=== PATIENT | female | born 1995 | race Caucasian/White ===

== ENCOUNTER 2017-03-27 06:22 | Observation (INO) | payer OTHER ==
[2017-03-27] VITALS (12 sets, daily range): BP systolic 93–124; BP diastolic 61–85; PULSE 60–126; RESP 11–20; O2SAT 96–100
[~2017-03-27] VITALS: Ht 165.1 cm; Wt 75.0 kg
--- NOTE | 2017-03-27 06:52 | ED.REPORT ---
HPI-Abd Pain F Under 40 Date of Service Mar 27, 2017 ED Provider: Remberto Rivera DO Patient is a 22 year old female who presents to the ED complaining of sudden onset, constant, RLQ abdominal pain onset 1700 last night. Associated symptom include nausea and chills. She denies fever, vomiting, diarrhea, abnormal vaginal discharge, or any other symptoms. She last ate around 1830 last night. Pt is currently on her period. Nursing Notes Stated Complaint: BOTTOM RIGHT ABDOMINAL PAIN Chief Complaint: Female Abdominal Pain Nursing Notes Reviewed: Yes Allergies: Coded Allergies: No Known Allergies (Unverified , 03/27/17) General Time Seen by MD: 06:49 Chief Complaint Abdominal pain Hx Obtained From: Patient Arrived By: Walk-in Sudden in Onset?: Yes Onset Occurred: 13 - 16 hours ago Symptom Duration: Since onset Progression since Onset: Constant Location: : RLQ Quality: Painful Severity: Current: Moderate Severity: Maximum: Moderate Past Medical History Past Medical History Heathy Past Surgical History Denies Smoking History Never Smoker Social History Alcohol Use: "Social" Drug Use: THC Other Social History: Good social support Ambulatory Status Independent Review of Systems Constitutional: Reports: Chills, Denies: Fever GI: Reports: Abdominal pain, Nausea, Denies: Diarrhea, Vomiting Female: Denies: Vaginal discharge Complete sys rev & neg: except as marked. Physical Exam Initial Vital Signs Vital Signs (First) Date Time Temp Pulse Resp B/P Pulse Ox O2 Delivery O2 Flow Rate FiO2 03/27/17 06:32 37.6 70 20 106/68 96 Room Air Initial VS: Reviewed, Vital signs abnormal Head / Eyes: Atraumatic, Normocephalic Neck: Full range of motion Skin: Warm, Dry Neurologic: Alert, Oriented, Nonfocal Psychiatric: Mood/affect normal, Behavior normal, Normal thought content General/Constitutional: Awake, Alert, No acute distress Respiratory / Chest: Atraumatic, Breath sounds NL, Breath sounds = bilat, No respiratory distress Cardiovascular: Heart rate NL, Regular rhythm, Heart sounds NL Abdomen: Atraumatic, Soft Tenderness/Guarding/Rebound: Positive: McBurney's point tender, Tender RLQ... Back: Atraumatic Interpretation & Diagnostics Lab Results Interpretation Result Diagram: 03/27/17 0700 03/27/17 0700 Test 9/12/17 07:00 White Blood Count 17.1th/mm3 (3.8-10.1) Red Blood Count 4.40mil/mm3 (3.90-5.20) Hemoglobin 12.8g/dL (12.0-15.6) Hematocrit 37.2% (35.0-46.0) Mean Corpuscular Volume 84.5fL (81-100) Mean Corpuscular Hemoglobin 29.1pg (27.0-35.0) Mean Corpuscular Hemoglobin Concent 34.4% (32.0-37.0) Red Cell Distribution Width 12.1% (12.3-15.4) Platelet Count 208bil/L (150-400) Neutrophils (%) (Auto) 86.3% (40-74) Lymphocytes (%) (Auto) 3.7% (14-46) Monocytes (%) (Auto) 9.6% (4-12) Eosinophils (%) (Auto) 0.1% (0-5) Basophils (%) (Auto) 0.1% (0-3) Sodium Level 137mEq/L (134-144) Potassium Level 3.8mEq/L (3.5-5.2) Chloride Level 103mEq/L (97-108) Carbon Dioxide Level 20mmol/L (18-29) Blood Urea Nitrogen 11mg/dL (6-20) Creatinine 0.54mg/dL (0.57-1.00) Estimat Glomerular Filtration Rate 200mL/min (>59) Glucose Level 111mg/dL (60-99) Calcium Level 8.9mg/dL (8.5-10.1) Magnesium Level 1.8mg/dL (1.6-2.6) Total Bilirubin 1.0mg/dL (0.0-1.2) Aspartate Amino Transf (AST/SGOT) 15U/L (0-50) Alanine Aminotransferase (ALT/SGPT) 6U/L (0-32) Alkaline Phosphatase 56U/L (25-150) Total Protein 7.1g/dL (6.4-8.4) Albumin 4.2g/dL (3.4-5.0) Lipase 19U/L (13-60) Re-Eval/Medical Decision Med Decision/Clinical Course Med Decision/Clinical Course: Exam highly suggestive of appendicitis with a positive ultrasound and leukocytosis. Surgeon is consulted who agrees to admit the patient. Re-Evaluation/Progress : Time of Eval: 08:52 )( Re-Eval Abdomen: Soft Re-Evaluation/Progress Note: Rechecked pt. Discussed US results and plan for admission. Patient understands and agrees with plan. All questions addressed at this time. Consultation : Referral / Consult Name: Piyush Cline MD Consulted With: Surgeon Call Returned at: 09:10 Hand Surgeon: Will see patient, Agrees with eval, Agrees with plan, Accepts admit Note: Discussed pt's case. Will see pt. Accepts admit. Counseled Regarding: Diagnosis, Lab results, Need for admission Discharge & Departure Primary Impression: Appendicitis Appendicitis type: acute appendicitis Acute appendicitis type: unspecified acute appendicitis type Qualified Code: K35.80 - Unspecified acute appendicitis Referrals: NOPCP (PCP) Jennifer Attestation Portions of this note were transcribed by Katerine Michael. I, Dr. Rivera personally performed the history, physical exam and medical decision-making; I reviewed and confirmed the accuracy of the information in the transcribed note. Signed by: Jennifer Holbrook, 03/27/17 Remberto Rivera DO Mar 27, 2017 06:52 KATERINE MICHAEL Mar 27, 2017 07:02
[2017-03-27 07:10] LABS: BASOPHILS % (AUTO) 0.1 % (0-3); EOSINOPHILS % (AUTO) 0.1 % (0-5); MONOCYTES % (AUTO) 9.6 % (4-12); Mean Corpuscular Hemoglobin 29.1 pg (27.0-35.0); Mean Corpuscular Volume 84.5 fL (81-100); NEUTROPHILS % (AUTO) 86.3 % (40-74); Platelet Count 208 bil/L (150-400)
[2017-03-27] MEDS ORDERED: Ketorolac 15 mg/mL Inj IVPUSH ONE (07:25)
[2017-03-27] MEDS ORDERED: Ondansetron 2 mg/mL 2 mL Inj IVPUSH PRN ×3 (07:25→12:10)
[2017-03-27 07:31] LABS: Magnesium 1.8 mg/dL (1.6-2.6)
[2017-03-27] MEDS ORDERED: Ampicillin-Sulbactam Inj 3,000 MG in 0.9% Sodium Chloride 100 ML IV ONE (10:30)
--- NOTE | 2017-03-27 10:40 | NUR ---
arrived to room 1019 from ER pt was only in room a few minutes when OR crew came and brought her to surgery, Boyfriend here. Consent already signed. Pt feeling anxious
[2017-03-27] MEDS ORDERED: Lactated Ringer's 1,000 ML IV SCH (11:08)
[2017-03-27] MEDS ORDERED: Lactated Ringer's 500 ML IV PRN (11:08)
--- NOTE | 2017-03-27 11:08 | PCM.HPANE ---
Patient Data Date of Service: Mar 27, 2017 Surgeon Admitting Provider:Piyush Cline MD Attending Provider:Piyush Cline MD Primary Care Physician:Nopcp Other Provider: Reason for Visit Acute Appy Ht/WT & BMI Height (Feet): 5 Height (Inches): 5 Weight (Kilograms): 75 Body Mass Index Allergies Coded Allergies: No Known Allergies (Unverified , 03/27/17) Past Anesthesia History Anesthesia History: Denies:: Fam Anesthesia Reaction, Fam Malignant Hypertherm Diabetes History Hx Diabetes?: No Medications Hypertension Medication: No Home Meds Incl Beta Suzie: No History History of ENT Problems?: No HEENT History: Denies:: Abnormal Airway Denture Type: None Teeth Condition: Within Normal Limits Hx of Heart Problems?: No Cardiovascular History: Denies:: Congestive Heart Failure Hypertension Hx of Respiratory Problem?: No Respiratory History: Denies:: Tuberculosis Hx Neurologic Problems?: No Hx of GI Problems?: No Hx of Problems?: No Female Hx: Denies:: Currently Hx Musculoskeletal Problems?: No Hx of Psycho/Social Problems?: No Hx Surgeries?: No Hx Any Other Health Problems?: No Hx Diabetes: No Hx Alcohol Use: NoHx Substance Use: No Smoking Status: Never Smoker Have You Smoked inLast 12 mo: No Stop/Bang OSMANI Risk Assessment: Low Risk, <3 Yes Risk Assessment Category Category 1A: Patient has history of documented sleep apnea, and HAS NOT received any narcotic, sedative or anesthesia administration during this stay. Category 1B: Patient has history of documented sleep apnea, and HAS received any narcotic , sedative or anesthesia administration during this stay Category 2: Patient has SUSPECTED Obstructive Sleep Apnea, and HAS received any narcotic , sedative or anesthesia administration during this stay. Category 3: Patient has SUSPECTED Obstructive Sleep Apnea and HAS NOT received narcotic, sedative or anesthesia administration during this stay. Category 4: Outpatient in Procedural Areas with known sleep apnea or who screen positive for High Risk via the STOP/BANG questionnaire. Exam Exam Vital Signs Vital Signs Date Time Temp Pulse Resp B/P Pulse Ox O2 Delivery O2 Flow Rate FiO2 03/27/17 10:58 36.6 75 16 100/65 98 Room Air 03/27/17 10:13 78 18 104/61 98 Room Air 03/27/17 06:32 37.6 70 20 106/68 96 Room Air General Appearance: Alert, Oriented X3, Cooperative, No Acute Distress HEENT/AIRWAY: MP 2 Lungs: Clear to Auscultation, Normal Air Movement Heart: Exam Unremarkable, Regular Rate/Rhythm, No Murmurs/Rubs/Gallops Meds/Labs/Diagnostics Admission Meds Current Medications Ketorolac Tromethamine (Toradol Inj) 15 mg ONCE ONCE IVPUSH Last administered on 03/27/17t 07:56; Start 03/27/17 at 07:25; Stop 03/27/17 at 07:26; Status DC Labs Test 03/27/17 07:00 White Blood Count 17.1th/mm3 (3.8-10.1) Red Blood Count 4.40mil/mm3 (3.90-5.20) Hemoglobin 12.8g/dL (12.0-15.6) Hematocrit 37.2% (35.0-46.0) Mean Corpuscular Volume 84.5fL (81-100) Mean Corpuscular Hemoglobin 29.1pg (27.0-35.0) Mean Corpuscular Hemoglobin Concent 34.4% (32.0-37.0) Red Cell Distribution Width 12.1% (12.3-15.4) Platelet Count 208bil/L (150-400) Neutrophils (%) (Auto) 86.3% (40-74) Lymphocytes (%) (Auto) 3.7% (14-46) Monocytes (%) (Auto) 9.6% (4-12) Eosinophils (%) (Auto) 0.1% (0-5) Basophils (%) (Auto) 0.1% (0-3) Sodium Level 137mEq/L (134-144) Potassium Level 3.8mEq/L (3.5-5.2) Chloride Level 103mEq/L (97-108) Carbon Dioxide Level 20mmol/L (18-29) Blood Urea Nitrogen 11mg/dL (6-20) Creatinine 0.54mg/dL (0.57-1.00) Estimat Glomerular Filtration Rate 200mL/min (>59) Glucose Level 111mg/dL (60-99) Calcium Level 8.9mg/dL (8.5-10.1) Magnesium Level 1.8mg/dL (1.6-2.6) Total Bilirubin 1.0mg/dL (0.0-1.2) Aspartate Amino Transf (AST/SGOT) 15U/L (0-50) Alanine Aminotransferase (ALT/SGPT) 6U/L (0-32) Alkaline Phosphatase 56U/L (25-150) Total Protein 7.1g/dL (6.4-8.4) Albumin 4.2g/dL (3.4-5.0) Lipase 19U/L (13-60) Plan Impression Patient chart reviewed, patient interviewed and anesthestic plan with risks, benefits, and alternatives discussed, and informed consent obtained. NPO per Anesth. Guidelines: Yes ASA Physical Status: ASA1 Normal Healthy Anesthetic Plan: GA Bene/Risks/Altern/Consents: Yes HP Complete Prior to Induction: Yes Tato Grajeda MD Mar 27, 2017 11:08
[2017-03-27] MEDS ORDERED: HYDROmorphone 1 mg/mL Inj IVPUSH PRN ×2 (11:10→12:15)
[2017-03-27] MEDS ORDERED: Dexamethasone 4 mg/mL Inj IVPUSH PRN (11:10)
[2017-03-27] MEDS ORDERED: Phenylephrine 10,000 mCg/mL Inj IVPUSH PRN (11:10)
[2017-03-27] MEDS ORDERED: MetoCLOpramide 5 mg/mL 2 mL Inj IVPUSH PRN ×2 (11:10→12:10)
[2017-03-27] MEDS ORDERED: EPHEDrine Sulfate 50 mg/mL Inj IVPUSH PRN (11:10)
[2017-03-27] MEDS ORDERED: fentaNYL-PF 50 mCg/mL 2 mL Inj IVPUSH PRN (11:10)
[2017-03-27] MEDS ORDERED: Lactated Ringer's 1,000 ML IV ONE ×2 (11:27)
[2017-03-27] MEDS ORDERED: Bupivacaine-MPF 0.5% 30 mL Inj INFILTRATE ONE (11:40)
--- NOTE | 2017-03-27 11:57 | DRSVH ---
PROCEDURE: US PELVIC SONOGRAM + TRANSVAGINAL SONOGRAM INDICATIONS: RLQ pain TECHNIQUE: Real-time scanning was performed of the pelvic organs, with image documentation. Additional endovagi nal scanning was necessary due to incomplete visualization of the adnexal and endometrial structures by transabdominal scanning. COMPARISON: [facility], US, US APPENDIX, 03/27/2017, 7:35. FINDINGS: (orthogonal measurements) Uterus size: 6.9 x 2.2 x 4.3 cm Endometrium thickness: 2.9 mm Right ovary size: 1.51 cm, 3.57 cm Left ovary size: 3.41 cm, 1.78 cm, 1.80 cm Transabdominal scanning: Limited scanning through the kidneys shows no hydronephrosis. No pathologi c free abdominal or pelvic fluid. Endovaginal scanning: Uterus: Uterus is normal in size and appearance. Endometrium is within normal physiologic limits. Ovaries: Within normal physiologic limits. Abnormal appearance of the appendix redemonstrated which is thickened and noncompressible. IMPRESSION: 1. Normal appearance of the gynecologic organs. 2. Abnormal appearance of the appendix as described in appendix dictation consistent with acute appen dicitis. Dr. Cline personally given results at 1130 hrs. 03/27/2017. Dictated by: Sharan Pineda RR Interpreted: Lissa Solomon MD on 03/27/2017 at 11:25 Transcribed by: TESS on 03/27/2017 at 11:56 Approved by: Lissa Solomon M.D. on 03/27/2017 at 17:19
[2017-03-27] MEDS ORDERED: Ketorolac 15 mg/mL Inj IVPUSH PRN (12:10)
[2017-03-27] MEDS ORDERED: Sodium Chloride LOK Flush 10 mL Syringe IVFLUSH PRN (12:10)
--- NOTE | 2017-03-27 12:17 | PCM.ANEP1 ---
Post Anesthesia PACU Phase 1 Assessment Date of Service: Mar 27, 2017 Vital Signs 36.1 121/82 127 16 100% RA Anesthetic Administered: GA Level of Alertness: Awake, talking CAVANAUGH's with Equal Strength: Yes Pain: No Nausea or Vomiting: No CV Function & Hydration Stable: Yes Airway Device: Oxygen Delivery: Room Air Lungs: Clear to Auscultation, Normal Air Movement PACU Phase 2 Assessment Complications: No Follow up Care: N/A Patient Instructions Provided: N/A Tato Grajeda MD Mar 27, 2017 12:17
--- NOTE | 2017-03-27 13:00 | NUR ---
arrived back to room 1019 from OR VSS, alert, oriented, comfortable, abd soft, incisions intact, denies nausea
--- NOTE | 2017-03-27 14:00 | HP ---
[address] [address] HISTORY AND PHYSICAL PATIENT: MARTIR ALVAREZ : 1995 MR#: [id number] ADMIT: 03/27/2017 JOB ID: [id number] CHIEF COMPLAINT: A 22-year-old woman with probable appendicitis. HISTORY OF PRESENT ILLNESS: The patient noted onset of abdominal pain with nausea and chills beginning last night. She is currently in the middle of her menstrual periods. Denies other vaginal discharge. PAST MEDICAL HISTORY: Unremarkable. MEDICATIONS: None. ALLERGIES: None. SOCIAL HISTORY: Negative daily alcohol, negative tobacco. Seen with her boyfriend, works at [employer] FAMILY HISTORY: Noncontributory. REVIEW OF SYSTEMS: Negative. PHYSICAL EXAMINATION: BMI is 27.5. Vital signs recorded in the chart. She is afebrile. Pulse and blood pressure are normal. HEENT: Sclerae are clear. Neck is supple. Lungs are clear. Heart sounds are regular. Breasts are not examined. She has my mild to moderate right lower quadrant tenderness to palpation. The rectal and vaginal examinations are not performed. LABORATORIES: Show white count of 17,000, hematocrit 37.2. Electrolytes are normal. Glucose is 111. LFTs and lipase are normal. IMAGING: She had an abdominal and pelvic ultrasound which is consistent with appendicitis but shows no adnexal pathology. I have reviewed the films myself and reviewed them with Sharan Pineda RPA, in Radiology. IMPRESSION AND PLAN: Probable appendicitis. I have recommended laparoscopic appendectomy. We have discussed options including antibiotic treatment, though I would not recommend this. She agrees to proceed.
--- NOTE | 2017-03-27 15:38 | OP ---
[address] [address] OPERATIVE REPORT PATIENT: MARTIR ALVAREZ : 1995 MR#: [id number] ADMIT: 03/27/2017 JOB ID: [id number] DATE OF SURGERY: 03/27/2017 SURGEON: Piyush Cline MD and Seven Pinedo MD, R-III. PATTERNMAKER BENCH: Freddy Urias PA-C (senior court office assistant was required for camera operation). PREOPERATIVE DIAGNOSIS(ES): Appendicitis. POSTOPERATIVE DIAGNOSIS(ES): Appendicitis. PROCEDURE: Laparoscopic appendectomy. INDICATIONS: A 22-year-old woman with signs and symptoms consistent with appendicitis. FINDINGS: Acute nonperforated appendicitis. senior court office assistant was required for camera operation. PROCEDURE IN DETAIL: The patient brought to the operating room. SCOAP protocol was followed. She received perioperative Unasyn. Abdomen was prepped and draped in sterile fashion. After surgical time-out was performed, we made incision by the umbilicus and placed a Veress needle. After establishing a CO2 pneumoperitoneum, 5 mm port was placed by the umbilicus. The abdomen was surveyed. The patient was tilted head-down and to the left and this had the appearance of appendicitis. We placed two additional ports in our standard fashion, peeled the greater omentum off of the appendix and then elevated the appendix, holding onto the mesoappendix and used a single firing of the 45 stapler white load to amputate the mesoappendix and the appendix at its base. Specimen was removed in a bag. We inspected the base and the staple line was intact. Hemostasis was good. We irrigated appropriately, let our CO2 out, closed the wounds with absorbable suture including 0-Vicryl at the 12 mm port. The patient tolerated the procedure well and may possibly go home later today. YASEMIN
--- NOTE | 2017-03-27 17:21 | DRSVH ---
PROCEDURE: US APPENDIX INDICATIONS: RLQ PAIN TECHNIQUE: Real-time focused scanning was performed of the abdomen with attention to the appendix, with image do cumentation. COMPARISON: None. FINDINGS: Appendix visualization: Well-visualized appendix. Appendix measurements: 1.0 cm. Associated findings: Echogenic fat: Present. Appendiceal compressibility: Absent. Appendicoliths: Absent. Nearby free fluid: Absent. Lymphadenopathy: Absent. Tenderness on exam: Present. IMPRESSION: Abnormal appearance of the appendix which is thickened and noncompressible consistent wit h nonruptured early acute appendicitis. Dr. Cline personally given results at 1130 hrs. 03/27/2017. Dictated by: Sharan RAO Interpreted: Lissa Solomon MD on 03/27/2017 at 11:32 Approved by: Lissa Solomon M.D. on 03/27/2017 at 17:19
--- NOTE | 2017-03-27 17:49 | PCM.DISURG ---
Surgical Discharge Instruction Date of Service Mar 27, 2017 Dates of Hospitalization Date of Hospital Admission Mar 27, 2017 at 09:14 Providers Admitting Physician: Piyush Cline MD Primary Care Physician: [place] Attending Physician: Piyush Cline MD Discharge Diagnosis Discharge Diagnosis appendicitis Post Operative diagnosis Same Diet Discharge Diet: No restrictions Activity Discharge Activity-General: Try not to overdue, Be up and about, Balance rest and activity, Activity as pain allows, Activity as energy allows, No driving while taking narcotic Dressing and Incisional Care Dressing Care: Allow Steri Stripes to fall off, Remove outer dressing after 24 hrs Hygiene: May shower after (24 hours), DO NOT soak incision under water, NO bathtub, hot tub or whirlpool Follow Up Plan Mid-level Provider (F9): Dakota Tenorio PA-C Follow-up appointment: Weeks (2-3) Call your provider for: Fever, Chills, Increasing abdominal pain, Nausea, Vomiting, Wound redness, Increasing wound pain, Warmth to touch, Discharge @ incision, pus discharge Mateo Mario PA-C Mar 27, 2017 17:49
[2017-03-27] MEDS ORDERED: OXYC1TAB24 PO (17:50)
--- NOTE | 2017-03-27 18:07 | PCM.DC.SUR ---
Discharge Summary Date of Service: Mar 27, 2017 Date of Hospital Admission: Mar 27, 2017 at 09:14 Date of Operation(s): Mar 27, 2017 Date of Discharge: Mar 27, 2017 Diagnosis at Time of Discharge Appendicitis Problems: Operation Laparoscopic appendectomy Brief History and Physical: HISTORY: The patient noted onset of abdominal pain with nausea and chills beginning last night. She is currently in the middle of her menstrual periods. Denies other vaginal discharge. PHYSICAL EXAMINATION: BMI is 27.5. Vital signs recorded in the chart. She is afebrile. Pulse and blood pressure are normal. HEENT: Sclerae are clear. Neck is supple. Lungs are clear. Heart sounds are regular. Breasts are not examined. She has my mild to moderate right lower quadrant tenderness to palpation. The rectal and vaginal examinations are not performed. Consultants: None Hospital Course: The patient was admitted from the ED and transferred to the operating room for a laparoscopic appendectomy. She tolerated the procedure well and was transferred to her hospital room where she remained for the balance of her hospital stay. Please refer to the operative report for details of the procedure. Later on the same day of the operation, she was found to be tolerating oral feedings and was ambulating without significant discomfort. She was then discharged to her home in good condition. Pathology: Pending Disposition: Home in good condition. oxyCODONE-Acetaminophen 5-325 mg (oxyCODONE-Acetaminophen 5-325 mg) 1 Each Tablet 1 TAB PO Q6H PRN PRN For Pain Mateo Mario PA-C Mar 27, 2017 18:07
--- NOTE | 2017-03-27 18:13 | PCM.PNSURG ---
Subjective Date of Service: Mar 27, 2017 Date of Service: Mar 27, 2017 Visit Information: Reason for Visit Acute Appy Surgery/Surgery Date LAP APPY 03/27/17 Post-Op Day # Date of Admission: Mar 27, 2017 at 09:14 Hospital Day #1 Subjective: Patient reports good pain control s/p lap appy. Tolerating oral feedings. Ambulating well. Wants to go home. Postop General: No Complaints Gastrointestinal: Tolerating Oral Feedings Pain Management: PO Postop Activity: Ambulating Independently Objective Objective Pleasant female in no apparent distress. Vital Sign- Last 8 Hours Date Time Temp Pulse Resp B/P Pulse Ox O2 Delivery O2 Flow Rate FiO2 03/27/17 16:23 36.7 83 18 93/61 99 Room Air 03/27/17 13:02 36.5 67 18 101/65 100 Room Air 03/27/17 12:43 60 16 115/70 100 Room Air 03/27/17 12:40 36.6 77 13 118/77 100 Room Air 03/27/17 12:34 76 11 118/73 100 Room Air 03/27/17 12:29 116 11 123/85 100 Room Air 03/27/17 12:27 121 13 119/74 100 Room Air 03/27/17 12:20 126 18 124/84 100 Room Air 03/27/17 12:17 Room Air 03/27/17 12:15 36.1 125 16 121/82 100 Room Air 03/27/17 10:58 36.6 75 16 100/65 98 Room Air 03/27/17 10:13 78 18 104/61 98 Room Air General: Alert, Cooperative, No Acute Distress Lungs: Clear to Auscultation Heart: Regular Rate/Rhythm Abdomen: Soft, Appropriately tender, Normoactive bowel tones SURGICAL WOUND : Wound General Appearence: Steri Strips, Well Approximated, No Erythema Dressing & Drainage Status: Intact, Serosanguineous Drainage Result Diagram: 03/27/17 0700 03/27/17 0700 Diagnostics: PROCEDURE: US APPENDIX INDICATIONS: RLQ PAIN FINDINGS: Appendix visualization: Well-visualized appendix. Appendix measurements: 1.0 cm. IMPRESSION: Abnormal appearance of the appendix which is thickened and noncompressible consistent with nonruptured early acute appendicitis. Assessment & Plan Impression Satisfactory post op course s/p lap appy, pod 0 Problems: Plan Discharge to home f/u 2-3 weeks with gen surgery PA Ibuprofen, tylenol for pain control. Percocet for severe pain control dressings (outer) off in 24 h then may shower relative rest May return to work next Sunday. Pain Management: Percocet for severe pain Advil or tylenol for mild/moderate Resuscitation Status: CPR: Attempt Resuscitation Mateo Mario PA-C Mar 27, 2017 18:12
--- NOTE | 2017-03-27 18:43 | NUR ---
pt discharged home with boyfriend, eating/drinking well, denies pain, denies nausea, ambulating in halls, will have f/u appt scheduled with Dakota Tenorio, PAC, discharge instructions went over and were reaffirmed by pt. She has Rx for Percocet
[2017-03-27] MEDS ORDERED: Glycopyrrolate 0.2 MG/ML 1mL Inj ONE (18:44)
[2017-03-27] MEDS ORDERED: Neostigmine 1 mg/mL 10 mL Inj ONE (18:44)
[2017-03-27] MEDS ORDERED: Propofol 10,000 mCg/mL 20 mL Inj ONE (18:44)
[2017-03-27] MEDS ORDERED: Dexamethasone 4 mg/mL Inj ONE (18:44)
[2017-03-27] MEDS ORDERED: HYDROmorphone 1 mg/mL Inj ONE (18:44)
[2017-03-27] MEDS ORDERED: Ondansetron 2 mg/mL 2 mL Inj ONE (18:44)
[2017-03-27] MEDS ORDERED: Succinylcholine Chloride 20 mg/mL 5 mL Inj ONE (18:44)
[2017-03-27] MEDS ORDERED: fentaNYL-PF 50 mCg/mL 2 mL Inj ONE (18:44)
[2017-03-27] MEDS ORDERED: Phenylephrine/NS 100 mCg/mL 10 mL Syringe IVPUSH ONE (18:44)
[2017-03-28] MEDS ORDERED: Polyethylene Glycol (PEG) 17 Gm Powder PO SCH (08:30)
--- NOTE | 2017-03-30 11:30 | PATH ---
SURGICAL PATHOLOGY Attending Physician:Piyush Cline MD CASE STATUS: Signed Out PATIENT NAME: MARTIR ALVAREZ PID: [id number] : 1995 DATE COLLECTED:03/27/2017 00:00 SPECIMEN: Appendix CLINICAL HISTORY: PROBABLE APPENDICITIS 1). APPENDIX FINAL DIAGNOSIS: Appendix, Appendectomy: Acute appendicitis with serositis. Negative for neoplasm. ICD10: K35.2 GROSS DESCRIPTION: Received one formalin-filled container labeled with the patient' s name, labeled "appendix". The specimen consists of one cylindrical, christine appendix which measures 6.0 x 1.2 x 1.2 cm. The serosal surface is light christine-brown, smooth, and glistening. There is a large amount of attached fatty tissue. Sectioning reveals the wall to be thickened to 0.2-0.3 cm. The lumen contains a christine-brown, semi-solid to friable material. Bi Report Developer sections, including the tips sectioned longitudinally, proximal margin inked blue, and random cross-sections are submitted in one cassette. (DC:[id number]) ICD-9 CODES: CPT CODES: 1: 35496 Electronically Signed Out Lonnie Fraser MD, Ph.D. [facility] Pathology [facility] [address], [place] [address] Technical component performed at [facility], [address] [place] [address] Ave[address], [place], [address]
== END 2017-03-27 18:45 | disposition home or self-care (01) ==
LOC: SED 06:22 → OSC 09:14
PROVIDERS: ADMIT Surgery; ATTEND Surgery
DX: K35.80 Unspecified acute appendicitis (principal)
CPT/HCPCS: 36415; 44970; 76705; 76830; 76856; 80053; 81025; 83690; 83735; 85025; 96374; 96375; 99285; G0378; J0295; J0330; J1100; J1170; J1885; J2250; J2270; J2370; J2405; J2704; J2710; J3010; J7120